=== PATIENT | female | born 1980 | race Caucasian/White ===

== ENCOUNTER → 2021-02-17 08:24 | Outpatient (CLI) | payer OTHER, SELFPAY ==
--- NOTE | ~2021-02-17 | MR_ITS ---
EXAMINATION: MR knee LT wo con DATE: 02/17/2021 09:10 INDICATION: Acute onset left knee pain and limited range of motion post injury 2 weeks prior with aud ible pop. TECHNIQUE: Magnetic resonance imaging (MRI) of the left knee was performed without intravenous contra st. Sequences included coronal PD-weighted FSE, coronal PD-weighted FS FSE, sagittal T2-weighted FSE , sagittal PD-weighted FS FSE and axial PD weighted fat saturated FSE. COMPARISON: None. FINDINGS: Ligaments and tendons: Complete tear of the anterior cruciate ligament. The posterior cruciate ligament is normal.. The medi al collateral ligament and fibular collateral ligament complex are normal. The extensor mechanism is normal. The visualized medial and lateral hamstring tendons as well as the iliotibial band are normal . Osseous/other: Marrow edema without discernible fracture lines consistent with bone contusions at the lateral sulcus of the lateral femoral condyle and along the posterior aspect of the lateral tibial plateau consiste nt with an anterior tibial subluxation injury occurring in conjunction with the anterior cruciate lig ament tear. Additional mild edema along the medial rim of the anterior weightbearing medial femoral c ondyle likely representing an additional bone contusion. Marrow signal is otherwise normal. No fractu re or pathologic marrow replacing process. Medial compartment: Medial meniscus is normal. Articular cartilage is normal. Lateral compartment: Lateral meniscus is normal. Articular cartilage is normal. Patellofemoral compartment: Cartilage thickness appears relatively preserved. Deep chondral fissure involving greater than 50% th e cartilage thickness at the medial patellar facet. Additional partial thickness chondral fissuring a t the trochlear groove and lateral aspect of the medial trochlea. Fluid: Moderate-sized left knee joint effusion. There is a suprapatellar plical band. No loose osteochondral bodies identified. Small Srinivasan's cyst measuring 3.7 x 0.7 x 0.6 cm. IMPRESSION: 1. Anterior tibial subluxation injury with complete tear of the anterior cruciate ligament and bone c ontusions at the posterior aspect of the lateral tibial plateau and along the anterior margins of the weightbearing medial and lateral femoral condyles. 2. Mild patellofemoral osteoarthritis with deep patellar and trochlear chondral fissuring without deg enerative subchondral images. 3. Likely reactive moderate sized left knee joint effusion. 4. Small Srinivasan's cyst. Reviewed, dictated and finalized at location A. IMPRESSION: 1. Anterior tibial subluxation injury with complete tear of the anterior crucia te ligament and bone contusions at the posterior aspect of the lateral tibial p lateau and along the anterior margins of the weightbearing medial and lateral f emoral condyles. 2. Mild patellofemoral osteoarthritis with deep patellar and trochlear chondral fissuring without degenerative subchondral images. 3. Likely reactive moderate sized left knee joint effusion. 4. Small Srinivasan's cyst.
== END ==
PROVIDERS: Visit Provider Nurse Practitioner Family
DX: M17.12 Unilateral primary osteoarthritis, left knee (principal); M71.22 Synovial cyst of popliteal space [Baker], left knee
CPT/HCPCS: 73721

== ENCOUNTER → 2023-10-15 13:50 | Outpatient (CLI) | payer BC, SELFPAY ==
--- NOTE | ~2023-10-15 | MR_ITS ---
MRI of the left wrist Technique: Coronal T1 weighted and proton density fat sat images, and axial and sagittal proton-densi ty and proton-density fat-sat images were acquired. Clinical History: Pain Findings: Scapholunate ligament is intact, and there is no widening of the scapholunate interval. Jace otriquetral ligament appears to be intact. There are degenerative signal in the central articular dis c of the TFCC, without definite full-thickness perforation. Bone marrow signals are unremarkable. Joint spaces are preserved. There are small joint effusion at t he triscaphe region, and at the DRUJ. There is edematous change of the pronator muscle belly. There i s subcutaneous soft tissue edema, especially along the volar aspect of the wrist, nonspecific. Flexor tendons and carpal tunnel are unremarkable. Extensor tendons are intact. No soft tissue mass e vident. IMPRESSION: Edematous change of the pronator quadratus muscle belly. Correlate for muscle strain versus possibly myositis. Nonspecific volar subcutaneous soft tissue edema. Small joint effusion of the DRUJ and triscaphe joint. Reviewed, dictated and finalized at location M. R CUTTER IMPRESSION: Edematous change of the pronator quadratus muscle belly. Correlate for muscle s train versus possibly myositis. Nonspecific volar subcutaneous soft tissue edema. Small joint effusion of the DRUJ and triscaphe joint.
== END ==
PROVIDERS: PCP Family Medicine; Visit Provider Family Medicine
DX: M25.432 Effusion, left wrist (principal); S63.006A Unspecified dislocation of unspecified wrist and hand, initial encounter; X58.XXXA Exposure to other specified factors, initial encounter
CPT/HCPCS: 73221

== ENCOUNTER 2024-12-15 08:24 | Outpatient (CLI) | payer SELFPAY ==
--- NOTE | ~2024-12-15 | MR_ITS ---
MRI of the cervical spine Clinical History: Upper left back pain Technique: Axial T2-weighted and gradient images, and sagittal T1-weighted, T2-weighted, and STIR taisha ges were acquired. Findings: There is no fracture or subluxation of the cervical spine. There is minimal reversal of the normal cervical lordosis. No suspicious bone marrow signal abnormality seen. The C2-C3, there is no disc bulge or herniation. No spinal canal stenosis, cord compression, or neura l foraminal narrowing. There is mild facet arthropathy, especially the right side. At C3-C4, there is no disc bulge or herniation. No spinal canal stenosis, cord compression, or neural foraminal narrowing. There is mild right facet arthropathy. At C4-C5, there is no disc bulge or herniation. No spinal canal stenosis, cord compression, or neural foraminal narrowing. At C5-C6, there is minimal disc osteophyte complex. No angel canal stenosis, cord compression, or genesis ral foraminal narrowing. At C6-C7, there is no disc bulge or herniation. No spinal canal stenosis, cord compression, or neural foraminal narrowing. No abnormal signal seen in the spinal cord. Paravertebral soft tissues are unremarkable. Impression: Minimal degenerative change, as above. Reviewed, dictated and finalized at location . Impression: Minimal degenerative change, as above.
== END 2024-12-15 08:25 | disposition home or self-care (01) ==
PROVIDERS: PCP Family Medicine; Visit Provider Nurse Practitioner Family
DX: M47.892 Other spondylosis, cervical region (principal)
CPT/HCPCS: 72141

== ENCOUNTER → 2025-08-10 16:28 | Outpatient (REF) | payer BC, SELFPAY ==
--- OUTSIDE RECORDS SUMMARY | 2024-07-27 03:00 | XMS_ITS ---
Author Organization [facility] Address [address] [place] [address] Care Team Providers Care Wireless Network Engineer Name Role Phone Dr. Felton Duran Primary Care Provider [phone] Migration, Provider Unavailable Unavailable Allergies Allergen (clinical drug ingredient) Drug/Non Drug Allergy documented on EMR Reaction Allergy Type Onset Date Status Latex Latex (uncoded) rash Allergy 02/07/2021 Act karly povidone-iodine Betadine rash Drug Allergy 02/08/2021 Active Vicodin rash Drug Allergy 02/07/2021 Active codeine Codeine rash Drug Allergy 02/07/2021 Active REASON FOR VISIT EMR-Mikael Medications Medication SIG (Take, Route, Frequency, Duration) Notes Start Date End Date Status Diclofenac Sodium 75 MG Tablet Delayed Release 1 Oral two times a day; Duration: 0 10/12/2023 Active Vitamin D (Ergocalciferol) 1.25 MG (60832 UT) Capsule 1 Oral once a week; Duration: 0 09/10/2023 Active Social History Social History Additional Details Category Social Info Options Details Migrated Social History Migrated Social History Alcohol history:Currently drinks alcohol ,notes : social basis only , Marital status: , Tobacco history:Never smoker Encounters Encounter Location Date Provider Diagnosis [facility] [address] [place] [address] 07/27/2024 Provider Migration Plan Of Treatment No Information Progress Notes * Mercy SARGENTDOB: [birth year] (45 yo F)Acc No.[id number]:07/27/2024 Patient: Jass TORRESGAMALIEL Mercy :1980 A ge:44 Y S ex:Female Phone: Address:[facility] [place], [address] Subjective: * Chief Complaints: * E MR-Mikael * Surgical History: (28809) KNEE ARTHROSCOPY/SURGERY ,notes : twice on right knee hysterectomy 07/2020 * Social History: M igrated Social History: M igrated Social History: Alcohol history:Currently drinks alcohol ,notes : social basis only,Marital status:,Tobacco history:Never smoker. * Medications: T akingDiclofenac Sodium 75 MG Tablet Delayed Release 1 Oral two times a day Vitamin D (Ergocalciferol) 1.25 MG (98319 UT) Capsule 1 Oral once a week Taking Diclofenac Sodium 75 MG Tablet Delayed Release 1 Oral two times a day Taking Vitamin D (Ergocalciferol) 1.25 MG (06430 UT) Capsule 1 Oral once a week * Allergies: L atex: rash - Allergy - Onset Date 1Betadine: rash - Allergy - Onset Date 02/08/2021Vicodin: rash - Allergy - Onset Date 1Codeine: rash - Allergy - Onset Date 02/07/2021 Objective: Past Vitals:* 03/19/2024 BP: 122/75 mm Hg, HR: 105 /m in, Oxygen sat %: 98 %, Wt: 178.40 lbs, Wt-k.92 kg * 12/31/2023 BP: 118/66 mm Hg, HR: 74 /mi n, Oxygen sat %: 97 %, Wt: 175.14 lbs, Wt-k.44 kg * * Date:
--- NOTE | 2025-08-10 16:28 | S_PTH ---
PATIENT: Mercy Sargent LOC: [facility] U#:[id number] AGE/SX: 45/F ROOM: RE08/10/[address]: Carla Rapp PA-C : 1980 BED: DIS: SPEC #: [id number] RECD: 08/11/25 07:30 STATUS: ALBA GREEN #: [id number] KELSEY: 08/10/25 16:[address]: Carla Rapp DEPT: [facility] Surgical RECD BY: Gt Castaneda ENTERED: 08/11/25 07:31 SP TYPE: Surgical OTHR DR: Jessika Constantino MD Tissues: A - LESION Procedures: Gross and Microscopic Level 4
--- OUTSIDE RECORDS SUMMARY | 2025-08-10 18:17 | XMS_ITS | Clinical Summary ---
Author Organization [address] Address [address] [place] [address] Care Team Providers Care Router Operator Name Role Phone Claudia Fernando NP Primary Care Provider Darrius Watson MD Unavailable [phone] Allergies Active Allergy Reactions Criticality Noted Date Comments Povidone-Iodine Rash Medium 03/28/2023 Codeine Rash Medium Latex Rash Medium 03/28/2023 Hydrocodone-Acetaminophen Rash Medium Medications ergocalciferol (VITAMIN D) 50,000 unit capsule [address] (CYMBALTA) 30 mg capsule Take 1 capsule (30 mg total) by mouth daily 90 capsule 3 4 Active ondansetron ODT (ZOFRAN-ODT) 4 mg disintegrating tablet Take 1 tablet (4 mg total) by mouth every 8 (eight) hours as needed for nausea or vomiting 20 tablet 4 Active Active Problems Problem Noted Date Diagnosed Date Paresthesia of skin 05/23/2024 Neuropathy 05/22/2024 Lower extremity numbness 03/28/2023 Pain in both lower extremities 03/28/2023 S/P ACL reconstruction 07/08/2021 Left anterior cruciate ligament tear 03/09/2021 Left knee pain 03/09/2021 Effusion of left knee 03/09/2021 Difficult intubation 07/08/2020 Overview (03/28/2023): Glidescope intubation. Surgical History Surgery Date Site/Laterality Comments FASCIOTOMY KNEE SURGERY LUMBAR DISCECTOMY ANTERIOR CRUCIATE LIGAMENT REPAIR DILATION AND CURETTAGE OF UTERUS HYSTERECTOMY Medical History Medical History Date Comments Allergic rhinitis Asthma Family History Medical History Relation Name Comments Cancer Father Cancer Mother Relation Name Status Comments Father Mother Social History Tobacco Use Types Packs/Day Years Used Date Smoking Tobacco: Never Tobacco Cessation:Counseling Given: Not Answered Comments No Sex and Gender Information Value Date Recorded Sex Assigned at Not on file Legal Sex Female 3:30 PM POSTAL CARRIER Gender Identity Not on file Sexual Orientation Not on file Last Filed Vital Signs Vital Sign Reading Time Taken Comments Blood Pressure 132/87 02/26/2025 1:01 PM CDT Pulse 76 02/26/2025 1:01 PM CDT Temperature - - Respiratory Rate - - Oxygen Saturation - - Inhaled Oxygen Concentration - - Weight 82.4 kg (181 lb 9.6 oz) 02/26/2025 1:01 P M CDT Height 172.7 cm (5' 8) 02/26/2025 1:01 PM CDT Body Mass Index 27.61 02/26/2025 1:01 PM CDT Plan of Treatment Health Maintenance Due Date Last Done Comments Colon Cancer Screening-Colonoscopy 1980 Depression Screening 1980 Hepatitis C Screening 1980 Hepatitis B Screening 1997 Regular Well Visit/Exam 18-64 1997 Breast Cancer Screening-Mammogram 01/01/2025 01/02/2024, 01/02/2024, 07/14/2022 Influenza Vaccine (#1) 2025 DTaP/Tdap/Td Vaccine (2 - Td or Tdap) 08/13/2030 08/13/2020 HPV Vaccines Aged Out No longer eligi ble based on patient's age to complete this topic Pneumococcal vaccine <65 Aged Out No longer eligible based on patient's age to complete this topic Insurance [facility] CHO[facility] PLUS [employer] Care Teams Router Operator Relationship Specialty Start Date End Date Claudia Fernando NP [address] [place] [address] PCP - General Family Medicine 02/22/21 Darrius Watson MD [address] [place] [id number] Consulting Physician Orthopedic Surgery 07/07/21
--- OUTSIDE RECORDS SUMMARY | 2025-08-10 18:17 | XMS_ITS | Encounter Summary ---
Author Organization [facility] Address [address] [place] [address] Care Team Providers Care Supervisor Dental Laboratory Name Role Phone Felton Duran MD Primary Care Provider [phone] Encounter Details Date Type Department Care Team (Late st Contact Info) Description 07/01/[address] [facility] [address] [place] [id number] Adriana Wan MD [address] [place] [address] Social History Tobacco Use Types Packs/Day Years Used Date Smoking Tobacco: Never Smokeless Tobacco: Never Alcohol Use Standard Drinks/Week Comments Never 0 (1 standard drink = 0.6 oz pur e alcohol) AUDIT-C Answer Date Recorded Q1: How often do you have a drink containing alc ohol? Never 07/01/2020 Average Number of Drinks Not on file 020 Frequency of Binge Drinking Not on file 12/2019 Comments No Sex and Gender Information Value Date Recorded Sex Assigned at Female 11/06/2024 2:21 PM CDT Legal Sex Female 3:15 PM CDT Gender Identity Not on file Sexual Orientation Not on file COVID-19 Exposure Response Date Recorded In the last month, have you been in contact with someone who was confirmed or suspected to have Coronavirus / COVID-19? No / Unsure 07/01/2020 2:34 PM FREIGHT TRUCKER documented as of this encounter Functional Status documented as of this encounter Plan of Treatment Not on file documented as of this encounter Visit Diagnoses Diagnosis Pre-op testing- Primary Preoperative examination, unspecified documented in this encounter Additional Health Concerns Infection Onset Date Last Indicated Resolved Time COVID-19 Rule Out 07/05/2020 07/05/2020 07/18/2021 4:38 PM FREIGHT TRUCKER COVID-19 Rule Out 08/14/2020 08/14/2020 08/16/2020 10:54 AM FREIGHT TRUCKER COVID-19 Rule Out 08/14/2020 08/14/2020 07/18/2021 5:03 PM FREIGHT TRUCKER documented as of this encounter Care Teams Supervisor Dental Laboratory Relationship Specialty Start Date End Date Felton Duran MD [address] [place] [address] PCP - General PEDIATRICS 08/12/20 documented as of this encounter
--- OUTSIDE RECORDS SUMMARY | 2025-08-10 18:17 | XMS_ITS | Encounter Summary ---
Author Organization [facility] Address [address] [place] [address] Care Team Providers Care Estimator And Drafter Supervisor Name Role Phone Felton Duran MD Primary Care Provider [phone] Encounter Details Date Type Department Care Team (Late st Contact Info) Description 08/10/2020 Prep for Procedure [facility] [address] [place], [place] [phone] Adriana Wan MD [address] [place] [address] Social History Tobacco Use Types Packs/Day Years [...] have Coronavirus / COVID-19? No / Unsure 08/12/2020 8:29 AM DRILLING MACHINE RUNNER documented as of this encounter Plan of Treatment Not on file documented as of this encounter Visit Diagnoses Diagnosis Pre-op testing- Primary Preoperative examination, unspecified documented in this encounter Additional Health Concerns Infection Onset Date Last Indicated Resolved Time COVID-19 Rule Out 07/05/2020 07/05/2020 07/18/2021 4:38 PM DRILLING MACHINE RUNNER COVID-19 Rule Out 08/14/2020 08/14/2020 08/16/2020 10:54 AM DRILLING MACHINE RUNNER COVID-19 Rule Out 08/14/2020 08/14/2020 07/18/2021 5:03 PM DRILLING MACHINE RUNNER documented as of this encounter Care Teams Estimator And Drafter Supervisor Relationship Specialty Start Date End Date Felton Duran MD [address] [place] [address] PCP - General PEDIATRICS 08/12/20 documented as of this encounter
--- OUTSIDE RECORDS SUMMARY | 2025-08-10 18:17 | XMS_ITS | Encounter Summary ---
Author Organization [facility] Address [address] [place] [address] Care Team Providers Care International Exchange Coordinator Name Role Phone Felton Duran MD Primary Care Provider [phone] Encounter Details Date Type Department Care Team (Late st Contact Info) Description 01/22/2024 [employer] Message Enc [facility] - [address], [address] [place] [address] [employer] Provider procedure Social History Tobacco Use Types Packs/Day Years Used Date Smoking Tobacco: Never Smokeless Tobacco: Never Alcohol Use Standard Drinks/Week Comments Never 0 (1 standard drink = 0.6 oz pur e alcohol) Social Connection and Isolation Panel Answer Date Recorded Frequency of Communication with Friends and Fami ly Not on file 08/17/2020 Frequency of Social Gatherings with Friends and Family Not on file 08/17/2020 Attends Shinto Services Not on file 08/17 Active Member of Clubs or Organizations Not on f ile 08/17/2020 Attends Club or Organization Meetings Not on cesar e 08/17/2020 Are you , , di vorced, , never , or living with a partner? 08/17/2020 AUDIT-C Answer Date Recorded Q1: How often do you have a drink containing alc ohol? Never 07/01/2020 Average Number of Drinks Not on file 020 Frequency of Binge Drinking Not on file 12/2019 Overall Financial Resource Strain (CARDIA) Answe r Date Recorded How hard is it for you to pa y for the very basics like food, housing, medical care, and heating? Not hard at all 08/17/2020 PHQ-2 Answer Date Recorded Patient Health Questionnaire-2 Score 0 01/17/2024 [facility] - Occupational Stress Questionnaire Answer Date Recorded Do you feel stress - tense, restless, nervous, or anxious, or unable to sleep at night because your mind is troubled all the time - these days? Only a little 08/17/2020 Hunger Vital Sign Answer Date Recorded Within the past 12 months, y ou worried that your food would run out before you got the money to buy more. Never true 08/17/20 20 Within the past 12 months, t he food you bought just didn't last and you didn't have money to get more. Never true 08/17/2020 PRAPARE - Transportation Answer Date Re corded In the past 12 months, has l ack of transportation kept you from medical appointments or from getting medications? No 07/28 In the past 12 months, has l ack of transportation kept you from meetings, work, or from getting things needed for daily living? No 08/17/2020 Comments No Sex and Gender Information Value Date Recorded Sex Assigned at Female 11/06/2024 2:21 PM CDT Legal Sex Female 3:15 PM CDT Gender Identity Not on file Sexual Orientation Not on file documented as of this encounter Functional Status * RETIRED Are you deaf or do you have serious difficulty hearing Answer Date of Assessment Author Status No 08/17/2020 4:49 PM LAPIDARIST Activ e * RETIRED Are you blind or do you have serious difficulty seeing, even when wearing glasses? Answer Date of Assessment Author Status No 08/17/2020 4:49 PM LAPIDARIST Activ e * Do you have serious difficulty walking or climbing stairs? Answer Date of Assessment Author Status No 08/17/2020 4:49 PM Marlena Telles R N Active * Do you have difficulty dressing or bathing? Answer Date of Assessment Author Status No 08/17/2020 4:49 PM Marlena Telles R N Active * Because of a physical, mental, or emotional condition, do you have difficulty doing errands alone such as visiting a doctor's office or shopping? Answer Date of Assessment Author Status No 08/17/2020 4:49 PM LAPIDARIST Hemker, Marlena M, R N Active documented as of this encounter Mental Status * Because of a physical, mental, or emotional condition, do you have serious difficulty concentrating, remembering, or making decisions? Answer Entry Date Author Status No 08/17/2020 4:49 PM LAPIDARIST Marlena Shah R N Active documented in this encounter Plan of Treatment Not on file documented as of this encounter Visit Diagnoses Not on filedocumented in this encounter Care Teams International Exchange Coordinator Relationship Specialty Start Date End Date Felton Duran MD [address] [place] [address] PCP - General PEDIATRICS 08/12/20 documented as of this encounter
--- OUTSIDE RECORDS SUMMARY | 2025-08-10 18:17 | XMS_ITS | Clinical Summary ---
Author Organization [facility] Address [facility] [place] [address] Care Team Providers Care Production Engine Repairer Name Role Phone Felton Duran MD Primary Care Provider [phone] Allergies Active Allergy Reactions Criticality Noted Date Comments Codeine Rash Low 07/01/2020 Latex Rash Medium 03/28/2023 Povidone Iodine Rash Medium 03/28/2023 Tape Rash Low 08/10/2020 Hydrocodone-Acetaminophen Rash Low 07/01/2020 Medications Cholecalciferol (VITAMIN D) 50 MCG (1999 UT) Tab Active Na sulfate-K sulfate-Mg sulfate (SUPREP BOWEL PREP KIT) 17.5-3.13-1.6 GM/177ML SolutionIndicat ions:Screening for colon cancer,Family history of polyps in the colon Take 177 mLs by mouth every 12 (twelve) hours. Per GI instructions 354 mL 4 Active Active Problems Problem Noted Date Diagnosed Date Family history of polyps in the colon 01/17/2024 Difficult intubation 07/08/2020 Overview (07/08/2020): Glidescope intubation. Resolved Problems Problem Noted Date Diagnosed Date Resolved Date Screening for colon cancer 01/22/2024 0 02/11/2024 Screening for colon cancer 01/22/2024 0 02/18/2024 Screening for colon cancer 01/17/2024 0 01/28/2024 Encounters Date Type Department Care Team Description 07/29/2025 10:01 AM SALESPERSON BOOKS - 07/29/2025 11:59 PM [facility] Ultrasound [address] [place], [place] [id number] Carolina Laurent NP Discharge Disposition: Home or Self Care (Routine Discharge) 07/29/2025 Travel 05/15/2025 3:00 PM CDT - 05/15/2025 11:59 PM CDT Hospital Encounter [facility] [address] [place] [address] Hilda Ortega MD McClenahan, Krystal M, PT Discharge Disposition: Home or Self Care (Routine Discharge) 05/15/2025 Travel from Last 3 Months Family History Medical History Relation Comments Cancer Father skin Breast Cancer Maternal Aunt 30-40's Cancer Mother skin Colon polyps Mother Diabetes Paternal Grandmother Liver Disease Paternal Grandmother Colon polyps Sister Relation Status Comments Father Maternal Aunt Mother Paternal Grandmother Sister Social History Tobacco Use Types Packs/Day Years Used Date Smoking Tobacco: Never Smokeless Tobacco: Never Tobacco Cessation:Counseling Given: No Alcohol Use Standard Drinks/Week Comments Never 0 (1 standard drink = 0.6 oz pur e alcohol) Social Connection and Isolation Panel Answer Date Recorded Frequency of Communication with Friends and Fami ly Not on file 08/17/2020 Frequency of Social Gatherings with Friends and Family Not on file 08/17/2020 Attends [employer] Not on file 08/17 Active Member [...] Recorded Patient Health Questionnaire-2 Score 0 01/17/2024 [facility] - Occupational Stress [...] Sign Reading Time Taken Comments Blood Pressure 111/82 02/12/2024 12:39 PM CDT Pulse 76 02/12/2024 12:39 PM CDT Temperature 37.2 C (98.9 F) 02/12/2024 10:27 AM CDT Respiratory Rate 16 02/12/2024 12:39 PM CDT Oxygen Saturation 100% 02/12/2024 12:39 PM CDT Inhaled Oxygen Concentration - - Weight 79.4 kg (175 lb) 02/05/2024 8:54 AM CDT Height 172.7 cm (5' 8) 02/05/2024 8:54 AM CDT Body Mass Index 26.61 02/05/2024 8:54 AM CDT Plan of Treatment Health Maintenance Due Date Last Done Comments Annual Physical 1982 Hepatitis C 1997 Hepatitis B Vaccines (1 of 3 - 19+ 3-dose series) 1998 PHQ-2 ([facility] [place]) 08/27/2024 01/17/2024 COVID-19 Vaccine (1 - 2024-2 6 season) 2025 Influenza Adult (#1) 2025 Mammogram Screening 07/29/2027 07/29/2025, 01/02/2024, 07/14/2022 DTaP, Tdap and Td Vaccines ( 2 - Td or Tdap) 08/13/2030 08/13/2020 Colorectal Cancer Screening Colonoscopy (10 Years) 02/11/2034 02/12/2024 Hepatitis A Vaccines Aged Out No long er eligible based on patient's age to complete this topic Meningococcal B Vaccine Aged Out No l onger eligible based on patient's age to complete this topic Meningococcal Vaccine Aged Out No shemar pierce eligible based on patient's age to complete this topic Pneumococcal Vaccine: Pediatrics (0 to 5 Years) and At-Risk Patients (6 to 49 Years) Aged Out No longer eligible b ased on patient's age to complete this topic RSV Immunizations Under 20 Months Aged Out No longer eligible b ased on patient's age to complete this topic Procedures Procedure Name Priority Date/Time Associated Diagnosis Comments US BREAST RT BIRAD LTD STAT 07/29/2025 11:29 AM SALESPERSON BOOKS Mastodynia of right breast MG DIAG W RICCI BILAT DIGI STAT 07/29/2025 10:50 AM SALESPERSON BOOKS Mastodynia of right breast from Last 3 Months Results * US BREAST RT ValveXchangeAD LTD (07/29/2025 11:29 AM SALESPERSON BOOKS) Anatomical Region Laterality Modality Breast Right Ultrasound 07/29/2025 12:5 0 PM SALESPERSON [employer]OOKS Impressions 07/29/2025 12:57 PM SALESPERSON BOOKS =====IMPRESSION:===== No mammographic evidence of malignancy. ASSESSMENT: ACR BI-RADS 2 - BENIGN FINDING(S) Recommendation: 1: Routine Screening Bilateral COMMENTS: If pain persists in the right breast, follow-up with surgical consultation Ordered By: CAROLINA LAURENT Interpreted By: Moiz Solares, 07/29/2025 12:50 PM Narrative 07/29/2025 12:57 PM SALESPERSON BOOKS [facility] [address] [place] [id number] EXAMINATION: Digital bilateral diagnostic mammogram with 3-D tomography. Right breast ultrasound [id number] EXAM DATE/TIME: 07/29/2025 10:04 AM REASON FOR EXAM: mastodynia Pain along the nipple line. No palpable lump. No trauma. No nipple discharge. Breast carcinoma in maternal aunt in her 40s COMPARISON: 07/14/2022.. January 02, 2024 TECHNIQUE: Digital diagnostic mammography of both breasts was performed in addition to 3-D Tomosynthesis technique. This study was read with the assistance of a computer-aided detection system. TISSUE DENSITY: The breasts are heterogeneously dense, which may obscure small masses. Findings: No new focal asymmetry, dominant mass lesion, area of skin thickening, or cluster of suspicious appearing calcifications in either breast to suggest malignancy.. Specifically no distinct abnormality in the right retroareolar region extending back to the pectoralis muscle.. RIGHT BREAST ULTRASOUND. Imaging at the right retroareolar region. Grossly normal underlying parenchyma. Retroareolar ducts noted. No pathologic process. No shadowing. No abnormal color flow. us Carolina Laurent DAY CARE ATTENDANT ULTRASOUND Final Result * MG DIAG W RICCI BILAT DIGI (07/29/2025 10:50 AM SALESPERSON [employer]OOKS) Anatomical Region Laterality Modality Breast Bilateral Mammography, Rad iographic Imaging 07/29/2025 12:5 0 PM SALESPERSON BOOKS Impressions 07/29/2025 12:57 PM SALESPERSON BOOKS =====IMPRESSION:===== No mammographic evidence of malignancy. ASSESSMENT: ACR BI-RADS 2 - BENIGN FINDING(S) Recommendation: 1: Routine Screening Bilateral COMMENTS: If pain persists in the right breast, follow-up with surgical consultation Ordered By: CAROLINA LAURENT Interpreted By: Moiz Solares, 07/29/2025 12:50 PM Narrative 07/29/2025 12:57 PM SALESPERSON [employer]OOKS [facility] [address] [place] [address] EXAMINATION: Digital bilateral diagnostic mammogram with 3-D tomography. Right breast ultrasound [id number] EXAM DATE/TIME: 07/29/2025 10:04 AM REASON FOR EXAM: mastodynia Pain along the nipple line. No palpable lump. No trauma. No nipple discharge. Breast carcinoma in maternal aunt in her 40s COMPARISON: 07/14/2022.. January 02, 2024 TECHNIQUE: Digital diagnostic mammography of both breasts was performed in addition to 3-D Tomosynthesis technique. This study was read with the assistance of a computer-aided detection system. TISSUE DENSITY: The breasts are heterogeneously dense, which may obscure small masses. Findings: No new focal asymmetry, dominant mass lesion, area of skin thickening, or cluster of suspicious appearing calcifications in either breast to suggest malignancy.. Specifically no distinct abnormality in the right retroareolar region extending back to the pectoralis muscle.. RIGHT BREAST ULTRASOUND. Imaging at the right retroareolar region. Grossly normal underlying parenchyma. Retroareolar ducts noted. No pathologic process. No shadowing. No abnormal color flow. Carolina Laurent NP MAMMO Final Result from Last 3 Months Insurance Advance Directives * Full Code (Latest Code Status on File) Date Activated Date Inactivated Comments 08/17/2020 3:30 PM 08/18/2020 3:17 PM Care Teams Production Engine Repairer Relationship Specialty Start Date End Date Felton Duran MD [address] [place] [address] PCP - General PEDIATRICS 08/12/20
--- OUTSIDE RECORDS SUMMARY | 2025-08-10 18:17 | XMS_ITS | Encounter Summary ---
Author Organization [facility] Address [address] [place] [id number] Care Team Providers Care Maintenance Truck Driver Name Role Phone Felton Duran MD Primary Care Provider [phone] Reason for Visit * Reason Onset Date Comments Schedule Procedure 01/22/2024 Encounter Details Date Type Department Care Team (Late st Contact Info) Description 01/22/2024 Telephone [facility] Day [facility] [address] [place] [address] Bita Ashford, RN Schedule Procedure Social History Tobacco Use Types Packs/Day Years [...] and Family Not on file 08/17/2020 Attends [employer] Services Not on file 08/17 Active Member [...] Recorded Patient Health Questionnaire-2 Score 0 01/17/2024 [facility] - Occupational Stress Questionnaire Answer Date Recorded [...] Assessment Author Status No 08/17/2020 4:49 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 Answer Date of Assessment Author Status No 08/17/2020 4:49 PM ADJUNCT TEACHER Activ e * Do you have serious [...] 4:49 PM Marlena Telles R N Active documented as of this encounter Mental Status * Because of a physical, mental, or emotional condition, do you have serious difficulty concentrating, remembering, or making decisions? Answer Entry Date Author Status No 08/17/2020 4:49 PM ADJUNCT TEACHER Marlena Shah R N Active documented in this encounter Plan of Treatment Not on file documented as of this encounter Visit Diagnoses Not on filedocumented in this encounter Care Teams Maintenance Truck Driver Relationship Specialty Start Date End Date Felton Duran MD [address] [place] [address] PCP - General PEDIATRICS 08/12/20 documented as of this encounter
== END ==
LOC: ANHLAB 16:28
PROVIDERS: PCP Family Medicine; Visit Provider Physician Assistant Surgical
DX: D22.9 Melanocytic nevi, unspecified (principal)
CPT/HCPCS: 88305